=== PATIENT | female | born 1960 | race African-American/Black ===

== ENCOUNTER 2020-04-23 08:53 | Outpatient (CLI) | payer MEDICARE ==
--- NOTE | 2020-04-23 10:11 | MMO ---
Bilateral MAMMO Bilat Screen [facility]. CLINICAL HISTORY: Patient is 59 years old and is seen for screening. The patient has the following family history of breast cancer: sister, at age 56. The patient has no personal history of cancer. VIEWS: The views performed were: bilateral craniocaudal with tomosynthesis; bilateral mediolateral oblique with tomosynthesis; and left mediolateral oblique. FILMS COMPARED: The present examination has been compared to prior imaging studies performed at [facility] on 02/12/2015 and 12/13/2016, and at [facility] on 05/21/2013. This study has been interpreted with the assistance of computer-aided detection. MAMMOGRAM FINDINGS: There are scattered fibroglandular densities. Finding 1: There are stable benign appearing calcifications seen in both breasts. Finding 2: There are stable benign appearing densities seen in both breasts. There are no suspicious masses, suspicious calcifications, or new areas of architectural distortion. IMPRESSION: THERE IS NO MAMMOGRAPHIC EVIDENCE OF MALIGNANCY. A ROUTINE FOLLOW-UP MAMMOGRAM IN 1 YEAR IS RECOMMENDED. THE RESULTS OF THIS EXAM WERE SENT TO THE PATIENT. ACR BI-RADS Category 2 - Benign finding MAMMOGRAPHY NOTE: 1. A negative mammogram report should not delay a biopsy if a dominant of clinically suspicious mass is present. 2. Approximately 10% to 15% of breast cancers are not detected by mammography. 3. Adenosis and dense breasts may obscure an underlying neoplasm. Reported by: HUMBLE LEIGH MD Electonically Signed: [id number]
--- NOTE | 2020-04-23 11:20 | BD ---
DEXA BONE DENSITY SCAN: DATE: 04/23/2020. COMPARISON: None. HISTORY: Postmenopausal female undergoing screening for osteoporosis. FINDINGS: Lumbar Spine: BMD (g/cm2) L1 0.834 T-Score: -1.4 L2 0.878 T-Score: -1.4 L3 0.852 T-Score: -2.1 L4 0.934 T-Score: -1.2 L1-L4 0.878 T-Score: -1.5 Femoral Neck: 0.803 T-Score: -0.4 Total Femur: 1.018 T-Score: 0.6 FRAX-WHO fracture risk assessment tool reports a 10-year fracture risk in an untreated patient at 5.2 % for major osteoporotic fracture and 0.1% for hip fracture. Impression: Lumbar spine osteopenia correlating with a moderately increased risk for fracture. POS: JAQUELIN
== END 2020-04-23 08:54 | disposition home or self-care (01) ==
LOC: BICMAMMO 08:53
PROVIDERS: ATTEND Family Medicine
DX: Z12.31 Encounter for screening mammogram for malignant neoplasm of breast (principal); Z78.0 Asymptomatic menopausal state; M85.88 Other specified disorders of bone density and structure, other site; Z80.3 Family history of malignant neoplasm of breast
CPT/HCPCS: 77063; 77067; 77080

== ENCOUNTER 2020-05-23 16:52 | Emergency (ER) | payer MEDICARE, OTHER ==
[2020-05-24 14:03] LABS: SARS-CoV-2 MS2 Positive; SARS-CoV-2 N Gene Negative; SARS-CoV-2 S Gene Negative; SARS-CoV-2 orf1ab Negative
== END 2020-05-23 17:18 | disposition home or self-care (01) ==
LOC: ERS 16:52
DX: Z20.828 Contact with and (suspected) exposure to other viral communicable diseases (principal); I11.0 Hypertensive heart disease with heart failure; I50.9 Heart failure, unspecified; I25.2 Old myocardial infarction; I25.10 Atherosclerotic heart disease of native coronary artery without angina pectoris; E66.9 Obesity, unspecified; F17.210 Nicotine dependence, cigarettes, uncomplicated
CPT/HCPCS: 87635; 99283; U0003

== ENCOUNTER 2020-12-19 18:00 | Emergency (ER) | payer MEDICARE ==
[2020-12-20 01:35] LABS: SARS-CoV-2 PCR by NAA Not Detected (NotDetected)
== END 2020-12-19 20:41 | disposition home or self-care (01) ==
LOC: ERS 18:00
DX: R05 Cough (principal); J34.89 Other specified disorders of nose and nasal sinuses; J02.9 Acute pharyngitis, unspecified; M79.10 Myalgia, unspecified site; R50.9 Fever, unspecified; Z20.822 Contact with and (suspected) exposure to COVID-19; I25.2 Old myocardial infarction; D50.9 Iron deficiency anemia, unspecified; I11.0 Hypertensive heart disease with heart failure; I50.9 Heart failure, unspecified; J44.9 Chronic obstructive pulmonary disease, unspecified; E66.9 Obesity, unspecified; I25.119 Atherosclerotic heart disease of native coronary artery with unspecified angina pectoris; F17.210 Nicotine dependence, cigarettes, uncomplicated
CPT/HCPCS: U0003; U0005; 87635; 99283

== ENCOUNTER 2022-01-28 07:42 | Emergency (ER) | payer MEDICARE | END 2022-01-28 08:33 | disposition home or self-care (01) | LOC: ERS 07:42 | DX: L50.9 Urticaria, unspecified (principal); I25.2 Old myocardial infarction; D50.0 Iron deficiency anemia secondary to blood loss (chronic); D50.9 Iron deficiency anemia, unspecified; I11.0 Hypertensive heart disease with heart failure; I50.9 Heart failure, unspecified; J44.9 Chronic obstructive pulmonary disease, unspecified; I25.10 Atherosclerotic heart disease of native coronary artery without angina pectoris; E66.9 Obesity, unspecified; F17.210 Nicotine dependence, cigarettes, uncomplicated; Z79.899 Other long term (current) drug therapy; Z79.82 Long term (current) use of aspirin; Z79.84 Long term (current) use of oral hypoglycemic drugs | CPT/HCPCS: 99282 ==

== ENCOUNTER 2022-09-06 08:31 | Outpatient (CLI) | payer MEDICARE | END 2022-09-06 08:32 | disposition home or self-care (01) | LOC: BICMAMMO 08:31 | PROVIDERS: ATTEND Family Medicine | DX: Z12.31 Encounter for screening mammogram for malignant neoplasm of breast (principal); Z13.820 Encounter for screening for osteoporosis; N95.9 Unspecified menopausal and perimenopausal disorder; M85.88 Other specified disorders of bone density and structure, other site; R92.1 Mammographic calcification found on diagnostic imaging of breast; Z80.3 Family history of malignant neoplasm of breast | CPT/HCPCS: 77063; 77067; 77080 ==

== ENCOUNTER 2023-10-15 12:45 | Outpatient (CLI) | payer OTHER | END 2023-10-15 12:46 | disposition home or self-care (01) | LOC: BICMAMMO 12:45 | PROVIDERS: ATTEND Family Medicine | DX: Z12.31 Encounter for screening mammogram for malignant neoplasm of breast (principal); Z80.3 Family history of malignant neoplasm of breast | CPT/HCPCS: 77063; 77067 ==

== ENCOUNTER 2024-01-19 19:53 | Emergency (ER) | payer OTHER ==
[2024-01-19 21:05] LABS: #Eosinphils 0.1 thou/uL (0.0-0.7); #Monocytes 0.6 thou/uL (0.11-0.59); #Neutrophils 4.8 thou/uL (1.40-6.50); %Basophils 0.1 % (0.0-1.0); %Eosinophils 1.1 % (0.0-10.0); %Monocytes 7.6 % (0.0-10.0); %Neutrophils 64.9 % (42.0-75.0); Hematocrit 30.3 % (36.0-47.0); Hemoglobin 9.5 g/dL (12.0-16.0); Mean Corpuscular HGB CONC 31.4 g/dL (32.0-36.0); Mean Corpuscular Hemoglobin 26.8 pg (27.0-31.0); Mean Corpuscular Volume 85.4 fl (78.0-98.0); Mean Platelet Volume 10.7 fL (7.4-10.4); Platelet Count 208 10x3/uL (130-400); RBC Distribution Width 15.6 % (11.5-14.5); Red Blood Cell (RBC) Count 3.55 mill/uL (4.20-5.40); White Blood Cell (WBC) Count 7.4 10x3/uL (4.8-10.8)
[2024-01-19 21:18] LABS: INR-International Normal Ratio 1.1; Prothrombin Time 14.5 sec (12.0-14.7)
[2024-01-19] MEDS ORDERED: Morphine 4 MG/ML VIAL ONE (21:26)
[2024-01-19 21:39] LABS: ALT (SGPT) 10 U/L (8-55); AST (SGOT) 13 U/L (5-34); Albumin 3.6 g/dL (3.4-4.8); Alkaline Phosphatase 89 U/L (40-110); Anion Gap 9 mmol/L (10-20); BUN (Urea Nitrogen) 14 mg/dL (9.8-20.1); Bilirubin, Total 0.3 mg/dL (0.2-1.2); Calc. Creatinine Clearance 0 mL/min (70-130); Calcium 8.6 mg/dL (7.8-10.44); Carbon Dioxide 26 mmol/L (23-31); Chloride 107 mmol/L (98-107); Estimated GFR 72; Globulin 3.7 g/dL (2.4-3.5); Glucose 107 mg/dL (80-115); Lipase 66 U/L (8-78); Potassium 3.6 mmol/L (3.5-5.1); Protein, Total 7.3 g/dL (5.8-8.1); Sodium 138 mmol/L (136-145)
== END 2024-01-19 23:05 | disposition home or self-care (01) ==
LOC: ERS 19:53
DX: S70.02XA Contusion of left hip, initial encounter (principal); S30.1XXA Contusion of abdominal wall, initial encounter; S70.12XA Contusion of left thigh, initial encounter; S70.312A Abrasion, left thigh, initial encounter; I11.0 Hypertensive heart disease with heart failure; I50.9 Heart failure, unspecified; J44.9 Chronic obstructive pulmonary disease, unspecified; I25.2 Old myocardial infarction; I25.10 Atherosclerotic heart disease of native coronary artery without angina pectoris; E66.9 Obesity, unspecified; V59.9XXA Occupant (driver) (passenger) of pick-up truck or van injured in unspecified traffic accident, initial encounter; W22.12XA Striking against or struck by front passenger side automobile airbag, initial encounter; Z87.891 Personal history of nicotine dependence; Z79.82 Long term (current) use of aspirin; Z79.899 Other long term (current) drug therapy
CPT/HCPCS: 36415; 70450; 71260; 72125; 74177; 80053; 83690; 85025; 85610; 85730; 96374; J2270